=== PATIENT | female | born 1990 | race Caucasian/White ===

== ENCOUNTER 2017-03-24 20:34 | Emergency (ER) | payer BC ==
[~2017-03-24] VITALS: Ht 160 cm; Wt 79.4 kg
[~2017-03-24 20:34] MED LIST: DCS100C PO; EPIN0.3P2 IM; FAMO20TA5 PO; FRS325T PO; HYDR-707 PO; IBP600T1 PO; NITR-65 PO; OXYC-12 PO; PREN1TAB71 PO; PREN1TAB79 PO
[2017-03-24 20:51] LABS: BASOPHILS # (AUTO) 0.1 10^3/uL (0.0-0.1); BASOPHILS % (AUTO) 1 % (0-10); EOSINOPHILS # (AUTO) 0.1 10^3/uL (0.0-0.3); EOSINOPHILS % (AUTO) 1 % (0-10); LYMPHOCYTES # (AUTO) 3.8 X 10^3 (1.0-4.0); LYMPHOCYTES % (AUTO) 41 % (12-44); MEAN CORPUSCULAR HEMOGLOBIN 29 PG (25-34); MEAN CORPUSCULAR HGB CONC 33 G/DL (32-36); MEAN CORPUSCULAR VOLUME 87 FL (80-99); MEAN PLATELET VOLUME 10.3 FL (7.4-10.4); MONOCYTES # (AUTO) 0.6 X 10^3 (0.0-1.0); MONOCYTES % (AUTO) 7 % (0-12); NEUTROPHILS # (AUTO) 4.8 X 10^3 (1.8-7.8); NEUTROPHILS % (AUTO) 51 % (42-75); PLATELET COUNT 260 10^3/uL (130-400); RED BLOOD COUNT 4.84 10^6/uL (4.35-5.85); WHITE BLOOD COUNT 9.4 10^3/uL (4.3-11.0)
--- NOTE | 2017-03-24 20:59 | ED Abdominal Pain ---
General Stated Complaint: SHARP PAINS IN SIDES Source of Information: Patient Exam Limitations: No Limitations History of Present Illness Time Seen By Provider: 20:58 Initial Comments Sharp band around the epigastric region bilaterally that began suddenly 1 hour ago after eating chicken and noodles. She had a similar pain a few days ago but it was mild and resolved on its own. She denies fevers chills nausea or vomiting. Denies bowel changes. Timing/Duration: 1-2 Days Severity/Quality: Moderate Location: Epigastric Radiation: No Radiation Activities at Onset: None Associated Symptoms: Denies Symptoms Allergies and Home Medications Allergies Coded Allergies: No Known Drug Allergies (Unverified , 03/16/13) Home Medications Hydrocodone/Acetaminophen 1 Each Tablet, 1 EACH PO Q4H PRN for PAIN-SEVERE, #10 Prescribed by: [facility] on 03/24/172214 Ondansetron 8 Mg Tab.rapdis, 8 MG PO Q6H PRN for NAUSEA/VOMITING-1ST LINE, #10 Prescribed by: [facility] on 03/24/175 Vit W-Ca,Fe,FA(<1 mg) 1 Each Tablet, 1 EACH PO DAILY, (Reported) Review of Systems Constitutional: see HPI EENTM: No Symptoms Reported Respiratory: No Symptoms Reported Cardiovascular: No Symptoms Reported Gastrointestinal: See HPI, Abdominal Pain, Denies Constipated, Denies Diarrhea , Denies Nausea Genitourinary: No Symptoms Reported Musculoskeletal: no symptoms reported Skin: no symptoms reported Psychiatric/Neurological: No Symptoms Reported Endocrine: No Symptoms Reported Past Oqisyps-Zwofhb-Edzdfl Hx Patient Social History Recent Foreign Travel: No Contact w/Someone Who Travel: No Immunizations Up To Date Tetanus Booster (TDap): Less than 5yrs PED Vaccines UTD: Yes Seasonal Allergies Seasonal Allergies: No Surgeries HX Surgeries: No Respiratory Hx Respiratory Disorders: No Cardiovascular Hx Cardiac Disorders: No Neurological Hx Neurological Disorders: No Reproductive System Hx Reproductive Disorders: No Genitourinary Hx Genitourinary Disorders: No Gastrointestinal Hx Gastrointestinal Disorders: No Musculoskeletal Hx Musculoskeletal Disorders: No Endocrine Hx Endocrine Disorders: No HEENT HX ENT Disorders: No Cancer Hx Cancer: No Psychosocial Hx Psychiatric Problems: No Integumentary HX Skin/Integumentary Disorder: No Blood Transfusions Hx Blood Disorders: No Adverse Reaction to a Blood Tr: No Family Medical History Family Medial History: Diabetes mellitus 19 MOTHER Hypercholesterolemia 19 FATHER 19 MOTHER Hypertension 19 FATHER Physical Exam Vital Signs VS - Last 72 Hours, by Label 03/24/17 20:45 Temp 98.2 Pulse 82 Resp 18 B/P (MAP) 148/121 Pulse Ox 100 O2 Delivery Room Air Capillary Refill : General Appearance: WD/WN, no apparent distress HEENT: PERRL/EOMI, normal ENT inspection Neck: non-tender, full range of motion, supple Respiratory: normal breath sounds, no respiratory distress, no accessory muscle use Cardiovascular: regular rate, rhythm, no murmur Gastrointestinal: normal bowel sounds, soft Extremities: normal range of motion, non-tender Neurologic/Psychiatric: alert, normal mood/affect, oriented x 3 Skin: normal color, warm/dry Progress/Results/Core Measures Results/Orders Lab Results Laboratory Tests Test 03/24/17 20:45 03/24/17 20:48 Range/Units White Blood Count 9.4 4.3-11.0 10^3/uL Red Blood Count 4.84 4.35-5.85 10^6/uL Hemoglobin 14.0 11.5-16.0 G/DL Hematocrit 42 35-52 % Mean Corpuscular Volume 87 80-99 FL Mean Corpuscular Hemoglobin 29 25-34 PG Mean Corpuscular Hemoglobin Concent 33 32-36 G/DL Red Cell Distribution Width 13.0 10.0-14.5 % Platelet Count 260 130-400 10^3/uL Mean Platelet Volume 10.3 7.4-10.4 FL Neutrophils (%) (Auto) 51 42-75 % Lymphocytes (%) (Auto) 41 12-44 % Monocytes (%) (Auto) 7 0-12 % Eosinophils (%) (Auto) 1 0-10 % Basophils (%) (Auto) 1 0-10 % Neutrophils # (Auto) 4.8 1.8-7.8 X 10^3 Lymphocytes # (Auto) 3.8 1.0-4.0 X 10^3 Monocytes # (Auto) 0.6 0.0-1.0 X 10^3 Eosinophils # (Auto) 0.1 0.0-0.3 10^3/uL Basophils # (Auto) 0.1 0.0-0.1 10^3/uL Sodium Level 140 135-145 MMOL/L Potassium Level 3.7 3.6-5.0 MMOL/L Chloride Level 106 98-107 MMOL/L Carbon Dioxide Level 23 21-32 MMOL/L Anion Gap 11 5-14 MMOL/L Blood Urea Nitrogen 12 7-18 MG/DL Creatinine 0.75 0.60-1.30 MG/DL Estimat Glomerular Filtration Rate > 60 BUN/Creatinine Ratio 16 Glucose Level 82 70-105 MG/DL Calcium Level 9.8 8.5-10.1 MG/DL Total Bilirubin 0.5 0.1-1.0 MG/DL Aspartate Amino Transf (AST/SGOT) 19 5-34 U/L Alanine Aminotransferase (ALT/SGPT) 37 0-55 U/L Alkaline Phosphatase 75 40-136 U/L Total Protein 7.6 6.4-8.2 G/DL Albumin 4.9 H 3.2-4.5 G/DL Lipase 20 8-78 U/L Urine Color YELLOW Urine Clarity SLIGHTLY CLOUDY Urine pH 6 5-9 Urine Specific Gilbert 1.020 1.016-1.022 Urine Protein NEGATIVE NEGATIVE Urine Glucose (UA) NEGATIVE NEGATIVE Urine Ketones NEGATIVE NEGATIVE Urine Nitrite NEGATIVE NEGATIVE Urine Bilirubin NEGATIVE NEGATIVE Urine Urobilinogen NORMAL NORMAL MG/DL Urine Leukocyte Esterase 1+ H NEGATIVE Urine RBC (Auto) 2+ H NEGATIVE Urine RBC 2-5 H /HPF Urine WBC 2-5 /HPF Urine Squamous Epithelial Cells 2-5 /HPF Urine Crystals NONE /LPF Urine Bacteria MODERATE H /HPF Urine Casts NONE /LPF Urine Mucus NEGATIVE /LPF Urine Culture Indicated YES My Orders Orders - [facility] APRN Cbc With Automated Diff (03/24/17 20:37) Ua Culture If Indicated (03/24/17 20:37) Urine Bedside (03/24/17 20:37) Saline Lock/Iv-Start (03/24/17 20:37) Comprehensive Metabolic Panel (03/24/17 20:37) Lipase (03/24/17 20:48) Chest 1 View, Ap/Pa Only (03/24/17 20:48) Ct Abdomen/Pelvis W (03/24/17 20:48) Fentanyl Injection (Sublimaze Injection (03/24/17 21:00) Ketorolac Injection (Toradol Injection) (03/24/17 21:00) Iohexol Injection (Omnipaque 350 Mg/Ml 1 (03/24/17 21:30) Ns (Ivpb) (Sodium Chloride 0.9% Ivpb Bag (03/24/17 21:30) Urine Culture (03/24/17 20:48) Fentanyl Injection (Sublimaze Injection (03/24/17 22:15) Ondansetron Injection (Zofran Injectio (03/24/17 22:15) Ondansetron Injection (Zofran Injectio (03/24/17 22:09) Hyoscyamine Sl Tablet (Levsin Sl Tablet) (03/24/17 22:30) Hydromorphone Injection (Dilaudid Inject (03/24/17 22:30) Medications Given in ED Current Medications Medications Dose Ordered Sig/Sajan Route Start Time Stop Time Status Last Admin Dose Admin Fentanyl Citrate 50 mcg ONCE ONCE IVP 03/24/17 21:00 03/24/17 21:01 DC 03/24/17 20:57 50 MCG Fentanyl Citrate 50 mcg ONCE ONCE IVP 03/24/17 22:15 03/24/17 22:16 DC 03/24/17 22:10 50 MCG Iohexol 100 ml ONCE ONCE IV 03/24/17 21:30 03/24/17 21:31 DC 03/24/17 21:24 100 ML Ketorolac Tromethamine 30 mg ONCE ONCE IVP 03/24/17 21:00 03/24/17 21:01 DC 03/24/17 20:55 30 MG Ondansetron HCl 8 mg ONCE ONCE IVP 03/24/17 22:15 03/24/17 22:16 DC 03/24/17 22:14 8 MG Sodium Chloride 100 ml ONCE ONCE IV 03/24/17 21:30 03/24/17 21:31 DC 03/24/17 21:24 80 ML Vital Signs/I&O Vital Sign - Last 12Hours 03/24/17 20:45 Temp 98.2 Pulse 82 Resp 18 B/P (MAP) 148/121 Pulse Ox 100 O2 Delivery Room Air Diagnostic Imaging Diagonstic Imaging: CT Comments NAME: JUANJOSE MURRAY [facility] REC#: [id number] PT STATUS: REG ER : 1990 PHYSICIAN: [facility] APRN ADMIT DATE: 03/24/17/ER Draft Date of Exam:03/24/17 CT ABDOMEN/PELVIS W PROCEDURE: CT abdomen and pelvis with contrast. TECHNIQUE: Multiple contiguous axial images were obtained through the abdomen and pelvis after administration of intravenous contrast. DATE: March 24, 2017. COMPARISON: None. INDICATION: 26-year-old female, upper abdominal pain. FINDINGS: The visualized portions of the lung bases are clear. The heart is not enlarged. There is no pericardial effusion. The liver is normal in size and contour. There is no identified liver lesion. The main, right, and left portal vein are patent. The gallbladder is unremarkable. There is no intrahepatic or extrahepatic bile duct dilation. The main pancreatic duct is not abnormally dilated. The pancreatic parenchyma is unremarkable. The spleen is not enlarged. The adrenal glands are unremarkable. Unremarkable appearance of the renal parenchyma. The urinary collecting systems are not distended. There is no identified renal or ureteral stone. The urinary bladder is collapsed and not well evaluated. There is a fat-containing umbilical hernia. The appendix is well identified on axial image 67 and adjacent sequential images. There is no evidence of acute appendicitis. There is no free intraperitoneal air. There is no drainable fluid collection. There is no free pelvic fluid. There is no abnormally enlarged lymph node within the abdomen or pelvis which meets CT size criteria for adenopathy. There is a sclerotic lesion in the left proximal femur measuring 7 mm in size at the level of the left intertrochanteric femur with narrow zone of transition. This is not specific although most likely is benign in etiology. No additional sclerotic bone lesion is identified. There is no identified acute bony abnormality. IMPRESSION: CT ABDOMEN AND PELVIS. 1. No identified acute abnormality within the abdomen or pelvis. 2. Fat-containing umbilical hernia. Dictated on workstation # [id number] Dict: 03/24/172199 Trans: 03/24/172209 MIGUEL [id number] Interpreted by: CHARISSE LENNON MD Electronically signed by: Departure Communication Progress Notes 2229-patient rates her pain currently at 4-5 out of 10. On arrival she states it was "through the roof over a 10". She does have some nausea now. Zofran has been given. We will give additional dose of 12.5 mg Benadryl and Levsin discharged home with outpatient follow-up. I discussed with her the need to follow-up and schedule an outpatient ultrasound of her gallbladder. Impression Impression: Primary Impression: Epigastric abdominal pain of unknown etiology Disposition: 01 HOME, SELF-CARE Condition: Stable Departure-Patient Inst. Decision time for Depature: 22:14 Referrals: ANNEL OTTO MD (PCP/Family) Primary Care Physician Patient Instructions: NO INSTRUCTIONS GIVEN Add. Discharge Instructions: 1. I think we should assume this is your gallbladder until proven otherwise given that you had this pain a few weeks ago and then it recurred tonight. You should follow a low-fat low dairy product diet for the next few days. You should follow-up with Dr. Otto to discuss an ultrasound of your gallbladder. That cannot be done tonight because you've recently had food. They would watch her to schedule this as an outpatient having nothing to eat or drink for the preceding 4-6 hours. 3. Return to ER for any concerns Such as worsening pain, fevers or uncontrollable vomiting Scripts Ondansetron (Zofran Odt) 8 Mg Tab.rapdis 8 MG PO Q6H Y for NAUSEA/VOMITING-1ST LINE, #10 TAB Prov: [facility] APRN 03/24/17 Hydrocodone/Acetaminophen (Gamaliel 5-325 Tablet) 1 Each Tablet 1 EACH PO Q4H Y for PAIN-SEVERE, #10 TAB Prov: [facility] APRN 03/24/17 Work/School Note: Work Release Form Date Seen in the Emergency Department: Mar 24, 2017 Return to Work: Mar 26, 2017 Copy Copies To 1: ANNEL OTTO MD, PETER J APRN Mar 24, 2017 20:59
[2017-03-24] MEDS ORDERED: KETOROLAC 30 MG/ML VIAL IVP ONE (21:00)
[2017-03-24] MEDS ORDERED: fentaNYL INJECTION 100 MCG/2 ML AMP IVP ONE ×2 (21:00→22:15)
[2017-03-24 21:10] LABS: ALANINE AMINOTRANSFERASE 37 U/L (0-55); ALBUMIN 4.9 G/DL (3.2-4.5); ANION GAP 11 MMOL/L (5-14); ASPARTATE AMINO TRANSFERASE 19 U/L (5-34); BILIRUBIN,TOTAL 0.5 MG/DL (0.1-1.0); BLOOD UREA NITROGEN 12 MG/DL (7-18); BUN/CREATININE RATIO 16; CALCIUM 9.8 MG/DL (8.5-10.1); CARBON DIOXIDE 23 MMOL/L (21-32); CHLORIDE 106 MMOL/L (98-107); CREATININE SERUM 0.75 MG/DL (0.60-1.30); GFR ESTIMATED > 60; GLUCOSE 82 MG/DL (70-105); POTASSIUM 3.7 MMOL/L (3.6-5.0); SODIUM 140 MMOL/L (135-145); TOTAL PROTEIN 7.6 G/DL (6.4-8.2)
[2017-03-24 21:27] LABS: BILIRUBIN,URINE NEGATIVE (NEGATIVE); KETONES,URINE NEGATIVE (NEGATIVE); LEUKOCYTE ESTERASE ,URINE 1+ (NEGATIVE); NITRITE,URINE NEGATIVE (NEGATIVE); PH,URINE 6 (5-9); PROTEIN,URINE NEGATIVE (NEGATIVE); UROBILINOGEN,URINE NORMAL (NORMAL)
[2017-03-24] MEDS ORDERED: NS 100 ML (IVPB) BAG IV ONE (21:30)
[2017-03-24] MEDS ORDERED: IOHEXOL 350 MG/ML 100 ML (OMNIPAQUE 350) VIAL IV ONE (21:30)
[2017-03-24] MEDS ORDERED: ONDANSETRON 4 MG/2 ML (SDV) Z0FRAN ONE (22:09)
--- NOTE | 2017-03-24 22:10 | Diagnostic Imaging Report ---
PROCEDURE: CT abdomen and pelvis with contrast. TECHNIQUE: Multiple contiguous axial images were obtained through the abdomen and pelvis after administration of intravenous contrast. DATE: March 24, 2017. COMPARISON: None. INDICATION: 26-year-old female, upper abdominal pain. FINDINGS: The visualized portions of the lung bases are clear. The heart is not enlarged. There is no pericardial effusion. The liver is normal in size and contour. There is no identified liver lesion. The main, right, and left portal vein are patent. The gallbladder is unremarkable. There is no intrahepatic or extrahepatic bile duct dilation. The main pancreatic duct is not abnormally dilated. The pancreatic parenchyma is unremarkable. The spleen is not enlarged. The adrenal glands are unremarkable. Unremarkable appearance of the renal parenchyma. The urinary collecting systems are not distended. There is no identified renal or ureteral stone. The urinary bladder is collapsed and not well evaluated. There is a fat-containing umbilical hernia. The appendix is well identified on axial image 67 and adjacent sequential images. There is no evidence of acute appendicitis. There is no free intraperitoneal air. There is no drainable fluid collection. There is no free pelvic fluid. There is no abnormally enlarged lymph node within the abdomen or pelvis which meets CT size criteria for adenopathy. There is a sclerotic lesion in the left proximal femur measuring 7 mm in size at the level of the left intertrochanteric femur with narrow zone of transition. This is not specific although most likely is benign in etiology. No additional sclerotic bone lesion is identified. There is no identified acute bony abnormality. IMPRESSION: CT ABDOMEN AND PELVIS. 1. No identified acute abnormality within the abdomen or pelvis. 2. Fat-containing umbilical hernia. Dictated by: Dictated on workstation # [id number]
[2017-03-24] MEDS ORDERED: HYDR-757 PO (22:15)
[2017-03-24] MEDS ORDERED: ONDA8TAB9 PO (22:15)
[2017-03-24] MEDS ORDERED: ONDANSETRON 4 MG/2 ML (SDV) Z0FRAN IVP ONE (22:15)
--- NOTE | 2017-03-24 22:18 | Diagnostic Imaging Report ---
EXAMINATION: Chest radiograph, portable AP view. DATE: March 24, 2017 at 2145 hours. INDICATION: 26-year-old female, lower chest and upper abdominal pain. Pain with inspiration. COMPARISON: November 05, 2014. FINDINGS: Heart size and mediastinal contours are unremarkable. There is no identified pneumothorax. There is no large pleural effusion. There is no identified focal airspace consolidation. IMPRESSION: No identified acute cardiopulmonary abnormality. Dictated by: Dictated on workstation # [id number]
[2017-03-24] MEDS ORDERED: diphenhydrAMINE 50 MG/ML INJ (BENADRYL) ONE (22:27)
[2017-03-24] MEDS ORDERED: HYDROmorphone (DILAUDID) 2 MG/ML VIAL IVP ONE (22:30)
[2017-03-24] MEDS ORDERED: diphenhydrAMINE 50 MG/ML INJ (BENADRYL) IVP ONE ×2 (22:30→22:45)
[2017-03-24] MEDS ORDERED: HYOSCYAMINE 0.125 MG (LEVSIN) TAB PO ONE (22:30)
[2017-03-24 23:48] VITALS: BP 130/93
== END 2017-03-24 22:37 | disposition home or self-care (01) ==
LOC: EDUNIT# 20:34 → ER 20:35
DX: R10.13 Epigastric pain (principal); K42.9 Umbilical hernia without obstruction or gangrene
CPT/HCPCS: 36415; 71010; 74177; 80053; 81000; 83690; 84703; 85025; 87088; 96374; 96375; 96376

== ENCOUNTER → 2017-03-29 | Outpatient (CLI) | payer BC ==
[~2017-03-29] MED LIST changes: +HYDR-3812 PO; +HYDR-757 PO; +ONDA8TAB9 PO
--- NOTE | 2017-03-29 09:10 | Diagnostic Imaging Report ---
PROCEDURE: US Gallbladder. TECHNIQUE: Multiple real-time grayscale images were obtained over the right upper quadrant in various projections. INDICATION: Abdominal pain. FINDINGS: The visualized portions of the pancreas appear unremarkable. There is no focal hepatic lesion seen. Hepatopetal flow in the portal vein is seen. The gallbladder demonstrates multiple stones and sludge with no gallbladder wall thickening or pericholecystic fluid. The CBD is 4 mm in caliber. The right kidney is 9.1 cm in length with no hydronephrosis or focal lesion. No right upper quadrant fluid collection is seen. The sonographic Narvaez sign is reportedly positive. IMPRESSION: Gallstones. No wall thickening or pericholecystic fluid is noted. The patient, however, is tender over the gallbladder and the sonographic Narvaez sign is positive. Correlate clinically. The report was faxed to the office of Dr. Dunn by JOSESITO at 9:15 AM. Dictated by: Dictated on workstation # [id number]
== END ==
LOC: RAD 07:59
PROVIDERS: ATTEND Family Medicine
DX: K80.20 Calculus of gallbladder without cholecystitis without obstruction (principal)
CPT/HCPCS: 76705

== ENCOUNTER 2017-03-30 13:21 | Outpatient (CLI) | payer BC ==
[~2017-03-30] VITALS: Ht 160 cm; Wt 81.6 kg
[~2017-03-30 13:21] MED LIST changes: -HYDR-3812 PO
[2017-03-31] MEDS ORDERED: HYDR-3812 PO (10:30)
== END 2017-03-30 13:33 ==
LOC: PREOP 13:21
PROVIDERS: ATTEND Surgery
DX: Z01.818 Encounter for other preprocedural examination (principal); K80.20 Calculus of gallbladder without cholecystitis without obstruction

== ENCOUNTER 2017-03-31 07:20 | Day surgery (SDC) | payer BC ==
[~2017-03-31] VITALS: Ht 160 cm; Wt 81.6 kg
[~2017-03-31 07:20] MED LIST changes: +BUP/EPI 0.25% 1:200,000 (MARCAINE) 30 ML VIAL ONE
[2017-03-31] MEDS ORDERED: metroNIDAZOLE 500MG/100ML IVPB 100 ML ONE (07:25)
[2017-03-31] MEDS ORDERED: ceFAZolin 2 GM/50 ML NS 50 ML ONE (07:25)
[2017-03-31 07:35] VITALS: BP 125/87
[2017-03-31] MEDS ORDERED: metroNIDAZOLE 500 MG/100 ML IVPB (PRE-MIX) IV ONE (07:45)
[2017-03-31] MEDS ORDERED: ceFAZolin 2 GM/NS 50 ML IV ONE (07:45)
[2017-03-31] MEDS ORDERED: fentaNYL INJECTION 100 MCG/2 ML AMP IV ONE (08:00)
[2017-03-31] MEDS ORDERED: fentaNYL INJECTION 250 MCG/5 ML AMP ONE (08:05)
[2017-03-31] MEDS ORDERED: MIDAZOLAM 2 MG/2 ML (VERSED) VIAL ONE (08:05)
[2017-03-31] MEDS ORDERED: ONDANSETRON 4 MG/2 ML (SDV) Z0FRAN ONE (08:05)
[2017-03-31] MEDS ORDERED: ROCURONIUM 50 MG/5 ML (ZEMURON) VIAL IV ONE (08:05)
[2017-03-31] MEDS ORDERED: DEXAMETHASONE PF 10 MG/ML (DECADRON) VIAL ONE (08:05)
[2017-03-31] MEDS ORDERED: proPOfol 200 MG/20 ML (DIPRIVAN) VIAL IV ONE (08:05)
[2017-03-31] MEDS ORDERED: SEVOFLURANE (ULTANE) 15 ML INHAL SOLN ONE (08:05)
[2017-03-31] MEDS ORDERED: LACTATED RINGERS 1,000 ML IV ONE ×2 (08:05→10:20)
[2017-03-31] MEDS ORDERED: LIDOCAINE PF 2% 10 ML (XYLOCAINE) AMP ONE (08:05)
[2017-03-31] MEDS: LACTATED RINGERS 1,000 ML IV PRN ×3 (08:06→11:45)
--- NOTE | 2017-03-31 08:13 | Progress Note-Pre Operative ---
Pre-Operative Progress Note H&P Reviewed The H&P was reviewed, patient examined and no changes noted. Date H&P Reviewed: March 31, 2017 Time H&P Reviewed: 08:13 Pre-Operative Diagnosis: Gallstones THEODORA JACOBO MD March 31, 2017 8:13 am
[2017-03-31] MEDS ORDERED: NEOSTIGMINE (BLOXIVERZ ) 1 MG/1ML 10 ML VIAL ONE (10:10)
[2017-03-31] MEDS ORDERED: GLYCOPYRROLATE 0.2 MG/ML (ROBINUL) 2 ML VIAL ONE (10:10)
[2017-03-31] MEDS ORDERED: fentaNYL INJECTION 100 MCG/2 ML AMP ONE (10:14)
--- NOTE | 2017-03-31 10:29 | Progress Note-Post Operative ---
Post-Operative Progess Note Surgeon (s)/Rock Crusher Operator (s) Surgeon THEODORA JACOBO MD Rock Crusher Operator: not applicable Pre-Operative Diagnosis Gallstones Post-Operative Diagnosis ssame Post-Op Procedure Note Date of Procedure: March 31, 2017 Name of Procedure Performed: robotic-assisted cholecystectomy Description of the Procedure: see operative report Findings of the Procedure see operative report Anesthesia Type Gen. Estimated blood loss (mL): minimal Specimen(s) collected/removed gallbladder THEODORA JACOBO MD March 31, 2017 10:29 am
[2017-03-31] MEDS ORDERED: HYDR-3812 PO (10:30)
--- NOTE | 2017-03-31 10:31 | Discharge Inst-Simple/Standard ---
Discharge Inst-Standard Discharge Medications New, Converted or Re-Newed RX: RX on Chart Patient Instructions/Follow Up Plan of Care/Instructions/FU: dressings off in 48 hours. Incentive spirometry. Follow-up in 3 weeks. Activity as Tolerated: Yes Discharge Diet: No Restrictions THEODORA JACOBO MD March 31, 2017 10:31 am
[2017-03-31] MEDS: HYDROmorphone (DILAUDID) 2 MG/ML VIAL IVP PRN ×3 (10:41→11:01)
[2017-03-31] MEDS ORDERED: MEPERIDINE (DEMEROL) INJ 50 MG/ML IVP PRN (10:45)
[2017-03-31] MEDS ORDERED: ONDANSETRON 4 MG/2 ML (SDV) Z0FRAN IVP PRN (10:45)
[2017-03-31] MEDS ORDERED: HYDROcodone/APAP 5 MG/325 MG (LORTAB) TAB ONE (11:26)
[2017-03-31 11:30] VITALS: BP 132/92
[2017-03-31 12:00] VITALS: BP 112/71
[2017-03-31 12:30] VITALS: BP 115/80
--- NOTE | 2017-04-01 07:24 | OPERATIVE REPORT ---
DATE OF SERVICE: 03/31/2017 PREOPERATIVE DIAGNOSIS: Cholelithiasis. POSTOPERATIVE DIAGNOSIS: Cholelithiasis. OPERATION: Robotic-assisted cholecystectomy. SURGEON: Theodora Jacobo MD ANESTHESIA: General anesthesia. BLOOD LOSS: Minimal. FLUIDS: 1600 mL of crystalloid, type 2 (clean-contaminated wound). INDICATION OF PROCEDURE: This lady presented with symptomatic gallstones. She was offered minimally invasive cholecystectomy using robotic assistance. Informed consent was obtained after reviewing the operative details and complications of wound infection. DESCRIPTION OF PROCEDURE: She was placed supine on the operating room table and general anesthesia induced using an endotracheal tube. A gram of Ancef and 500 mg of Flagyl were administered intravenously as prophylaxis against a wound infection. Sequential compression devices were placed around her legs to minimize the risk of venous thrombus. Abdomen was prepared and draped in the usual sterile manner. A supraumbilical incision was made and the linea alba incised from the . A supraumbilical incision was made and pneumoperitoneum was established using a Veress needle. Intraabdominal pressure was maintained at 15 mmHg, using carbon dioxide insufflation. A 12 mm trocar was placed and anatomy was visualized using the high definition, 3-dimensional laparoscope associated with Da Nallely system. Under direct view, I placed an 8 mm cannula over each side of the abdomen, followed by a 5 mm trocar over the left upper quadrant. The patient was turned on the reverse Trendelenburg position with the right side titled up. The robotic system was then docked in place. The fundus of the gallbladder was retracted using a grasper introduced via the left upper quadrant and the infundibulum of the gallbladder grasped with Cadiere's forceps. The peritoneum overlying Calot's triangle was incised using Hook cautery, delineating the cystic duct and artery. Due to LFTs being normal and the cystic duct being of small caliber, I elected to proceed without performing . Cystic duct is divided between locking clips. The cystic artery was managed in a similar fashion. Cholecystectomy was then completed using the Hook cautery. Gallbladder was then held up using a grasper, to be clear to use using an Endocatch bag, introduced via this supraumbilical trocar site. Subsequently, the fascia over this incision was closed using #1 Vicryl, using the EndoClose device under direct laparoscopic view. Skin incisions were closed using 4-0 Vicryl in a subcuticular fashion. A 0.25% Marcaine with epinephrine was infiltrate along the incisions, both preemptively and at the conclusion of the operation. She tolerated the procedure well, was extubated in the operating room and taken to the recovery room in stable condition. Needs, sponges and instruments were correct at the end of the operation. Job ID: [id number] DocumentID: [id number] Dictated Date: 03/31/2017 10:26:37 Hand Sizer Date: 04/01/2017 03:51:58 Dictated By: THEODORA JACOBO MD
== END 2017-03-31 13:50 | disposition home or self-care (01) ==
LOC: SDC 07:20
PROVIDERS: ATTEND Surgery
DX: K80.10 Calculus of gallbladder with chronic cholecystitis without obstruction (principal)
CPT/HCPCS: 84703; 87081; 88304; 94664

== ENCOUNTER → 2017-08-16 | Outpatient (CLI) | payer BC, OTHER ==
[~2017-08-16] MED LIST changes: -BUP/EPI 0.25% 1:200,000 (MARCAINE) 30 ML VIAL ONE; +HYDR-3812 PO
--- NOTE | 2017-08-16 09:31 | Diagnostic Imaging Report ---
PROCEDURE: CT urinary tract, rule out kidney stone. TECHNIQUE: Multiple contiguous axial images were obtained through the abdomen and pelvis without the use of intravenous contrast. INDICATION: Right flank pain. Study compared 03/24/2017 FINDINGS: There is no hydronephrosis and there are no opaque kidney or ureteral stones. The unopacified urinary bladder appeared normal. The appendix air-containing nondilated and nonacute. Liver, spleen, adrenals and pancreas negative. There is no biliary ductal dilatation. There is no bowel obstruction. No ascites, abscess, hematoma or fluid collection. No pneumatosis or free air. The uterus and adnexa unremarkable. Tiny fatty umbilical hernia chronic. IMPRESSION: No obstructive phenomena, inflammatory process, ascites or fluid collection. No acute appearing abnormality. Dictated by: Dictated on workstation # [id number]
== END ==
LOC: RAD 08:55
PROVIDERS: ATTEND Family Medicine
DX: R10.31 Right lower quadrant pain (principal)
CPT/HCPCS: 74176

== ENCOUNTER → 2017-11-16 | Outpatient (CLI) | payer BC, OTHER ==
--- NOTE | 2017-11-16 14:53 | Diagnostic Imaging Report ---
INDICATION: COUGH FOR 2 WEEKS. COMPARISON: 03/24/2017. FINDINGS: Frontal and lateral views of the chest demonstrate normal heart size and pulmonary vascularity. The lungs are clear. There are no signs of infiltrate, pleural effusions or pneumothoraces. The visualized osseous structures show no acute abnormalities. IMPRESSION: 1. No acute process. No signs of infiltrates, effusions or pneumothoraces. Dictated by: Dictated on workstation # [id number]
== END ==
LOC: RAD 14:32
PROVIDERS: ATTEND Family Medicine
DX: R05 Cough (principal)
CPT/HCPCS: 71020

== ENCOUNTER 2019-12-10 17:14 | Emergency (ER) | payer BC, OTHER ==
[~2019-12-10] VITALS: Ht 160 cm; Wt 86.6 kg
[~2019-12-10 17:14] MED LIST changes: +ACHD5005 PO; -HYDR-3812 PO; +HYDR-4226 PO; -HYDR-757 PO
--- NOTE | 2019-12-10 17:41 | ED Lower Extremity ---
General Chief Complaint: Lower Extremity Stated Complaint: BILAT ANKLE PAIN Nursing Triage Note: STATES SHE FELL DOWN X2 STARIS AND TWISTED BOTH ANKLES. DENIES HITTING HER HEAD OR ANY OTHER PROBLEMS. Nursing Sepsis Screen: No Definite Risk Source: patient Exam Limitations: no limitations History of Present Illness Date Seen by Provider: Dec 10, 2019 Time Seen by Provider: 17:39 Initial Comments To ER with bilateral ankle pain after falling down the stairs denies any head or any other injury. Onset: just prior to arrival Severity: moderate Pain/Injury Location: bilateral ankle Method of Injury: fell Modifying Factors: Worse With Movement Allergies and Home Medications Allergies Coded Allergies: No Known Drug Allergies (Unverified , 03/16/13) Home Medications Hydrocodone Bit/Acetaminophen 1 Each Tablet, 1-2 TAB PO 4-6HR PRN for PAIN Prescribed by: THEODORA JACOBO on 03/31/17 1030 Hydrocodone/Acetaminophen 1 Each Tablet, 1 EACH PO Q4H PRN for PAIN-SEVERE Prescribed by: [facility] DON on 03/24/17 2215 Patient Home Medication List Home Medication List Reviewed: Yes Review of Systems Constitutional: see HPI EENTM: see HPI Respiratory: no symptoms reported Cardiovascular: no symptoms reported Genitourinary: no symptoms reported Musculoskeletal: see HPI Skin: no symptoms reported Psychiatric/Neurological: No Symptoms Reported Past Fhqfosu-Jqbnnd-Ehozgs Hx Patient Social History Alcohol Use: Occasionally Uses Alcohol Beverage of Choice: Beer Recreational Drug Use: No Smoking Status: Never a Smoker 2nd Hand Smoke Exposure: No Recent Foreign Travel: No Contact w/Someone Who Travel: No Recent Infectious Disease Expo: No Recent Hopitalizations: No Immunizations Up To Date Tetanus Booster (TDap): Less than 5yrs PED Vaccines UTD: Yes Seasonal Allergies Seasonal Allergies: No Past Medical History Surgeries: No Respiratory: No Cardiac: No Neurological: No : No Last Menstrual Period: Dec 05, 2019 Reproductive Disorders: No Gastrointestinal: Yes Gall Bladder Disease Musculoskeletal: No Endocrine: No Cancer: No Psychosocial: No Integumentary: No Blood Disorders: No Adverse Reaction/Blood Tranf: No Family Medical History Diabetes mellitus 19 MOTHER Hypercholesterolemia 19 FATHER 19 MOTHER Hypertension 19 FATHER Physical Exam Vital Signs Vital Signs - First Documented 12/10/19 17:25 Temp 36.9 Pulse 79 Resp 16 B/P (MAP) 133/88 (103) Pulse Ox 99 O2 Delivery Room Air Capillary Refill : Less Than 3 Seconds Height, Weight, BMI Height: 5'3.00" Weight: 180lbs. 0.0oz. 81.586127zr; 33.00 BMI Method:Stated General Appearance: WD/WN, no apparent distress Respiratory: no respiratory distress, no accessory muscle use Hips: bilateral hip non-tender, bilateral hip normal inspection, bilateral hip normal range of motion Legs: bilateral leg non-tender Knees: bilateral knee non-tender, bilateral knee normal inspection, bilateral knee normal range of motion Ankles: bilateral ankle other (swelling laterally over the lateral malleolus bilaterally. Dorsalis pedis pulse +2 bilaterally. Normal sensation of the toes, normal movement of the toes, no tenderness to palpation of her heel. No tenderness to the mid tibia or fibula or proximal tibia or fibula on either side. No foot pain this is only ankle pain) Feet: bilateral foot non-tender, bilateral foot normal inspection, bilateral foot normal range of motion Neurologic/Psychiatric: alert, normal mood/affect, oriented x 3 Skin: normal color, warm/dry Progress/Results/Core Measures Results/Orders My Orders Orders - [facility] DON APRN Ankle, Bilateral, 3 Views (12/10/19 17:33) Hydrocodone/Apap 5/325 Tablet (Lortab 5 (12/10/19 17:45) Medications Given in ED Current Medications Medications Dose Ordered Sig/Sajan Route Start Time Stop Time Status Last Admin Dose Admin Acetaminophen/ Hydrocodone Bitart 1 tab ONCE ONCE PO 12/10/19 17:45 12/10/19 17:46 DC 12/10/19 17:41 1 TAB Vital Signs/I&O 12/10/19 17:25 Temp 36.9 Pulse 79 Resp 16 B/P (MAP) 133/88 (103) Pulse Ox 99 O2 Delivery Room Air Blood Pressure Mean: 103 Departure Impression Primary Impression: Sprain and strain of ankle Disposition: 01 HOME, SELF-CARE Condition: Stable Departure-Patient Inst. Decision time for Depature: 17:56 Referrals: ANNEL OTTO MD (PCP/Family) Primary Care Physician Patient Instructions: Ankle Sprain (DC) Add. Discharge Instructions: 1. Shade wrap to both ankles 2. Keep the ankle elevated as much as possible for the next 1-2 days to help reduce swelling. Ice pack may also be comforting. Pain medication as directed. When this runs out use Tylenol and ibuprofen. Use the crutches as needed for pain with walking, since her left foot hurts worse it may be better to use the crutches and put weight on your right foot sparing the left. All discharge instructions reviewed with patient and/or family. Voiced unders tanding. Scripts Hydrocodone Bit/Acetaminophen (Hydrocodone/Acetaminophen 5/325mg Tablet) 1 Tab Tab 1 EACH PO Q4-6HR PRN for PAIN-MODERATE MDD 10 for 3 Days, #10 TAB Prov: [facility] APRN 12/10/19 Work/School Note: Work Release Form Date Seen in the Emergency Department: Dec 10, 2019 Return to Work: Dec 13, 2019 [facility] DON APRN Dec 10, 2019 17:41
--- NOTE | 2019-12-10 17:44 | NUR ---
ANKLES ELEVATED ON PILLOW ET ICE APPLIED.
[2019-12-10] MEDS ORDERED: HYDROcodone/APAP 5 MG/325 MG (LORTAB) TAB PO ONE (17:45)
[2019-12-10] MEDS ORDERED: ACHD5005 PO (17:57)
--- NOTE | 2019-12-10 18:02 | Diagnostic Imaging Report ---
INDICATION: Bilateral ankle pain and injury. TIME OF EXAM: 5:56 p.m. Multiple views of bilateral ankles were obtained. FINDINGS: Both ankles show normal alignment. Ankle mortises are maintained. Talar domes are smooth. There are tiny well-corticated osseous densities adjacent to the medial malleolus on the right, likely old avulsions. No acute fracture is identified. There are plantar calcaneal spurs bilaterally. IMPRESSION: No acute bony abnormality is detected. Dictated by: Dictated on workstation # [id number]
[2019-12-10 18:17] VITALS: BP 133/88
== END 2019-12-10 18:17 | disposition home or self-care (01) ==
LOC: EDUNIT# 17:14 → ER 17:15
DX: S93.401A Sprain of unspecified ligament of right ankle, initial encounter (principal); S93.402A Sprain of unspecified ligament of left ankle, initial encounter; Z82.49 Family history of ischemic heart disease and other diseases of the circulatory system; W10.9XXA Fall (on) (from) unspecified stairs and steps, initial encounter

== ENCOUNTER 2021-10-28 00:20 | Emergency (ER) | payer OTHER ==
[~2021-10-28] VITALS: Ht 160 cm; Wt 93.0 kg
[2021-10-28] MEDS ORDERED: KETOROLAC 30 MG/ML VIAL IVP ONE (01:30)
--- NOTE | 2021-10-28 01:33 | ED Chest Pain ---
General Chief Complaint: Psych/Social Disorder Stated Complaint: CP,HANDS & ARMS TINGLING,ANXIETY Source: patient Exam Limitations: no limitations History of Present Illness Date Seen by Provider: Oct 28, 2021 Time Seen by Provider: 00:45 Initial Comments Patient is had 3 days of anxiety attacks tingling in her fingers, consistent with her previous anxiety attacks. She went and saw her doctor, Dr. Otto and he thought it might be from her Depo-Provera. She is on her second dose about 2 weeks ago. Today however around noon she started having severe chest pain in her right upper chest radiating through to her back shoulder blade. It was 10 out of 10 and caused her to stop what she was doing and hunch over. After a few minutes it came down. She is also having some chest pain over her left subcostal margin worse on deep inspiration. Neither are made worse by palpation. She took 600 mg of ibuprofen 2 hours ago without relief. She is not having any nausea. She is having a headache. She says she has a history of anxiety attacks. She is not having any fevers but has some nasal congestion. No no sore throat, cough or shortness of air. No primary family or personal history of coronary artery disease. No hypertension, hyperlipidemia, diabetes, smoking or drug use. Patient rates her pain as a 4 out of 10 presently. She has had her gallbladder out surgically in the past. Allergies and Home Medications Allergies Coded Allergies: No Known Drug Allergies (Unverified , 03/16/13) Patient Home Medication List Home Medication List Reviewed: Yes Hydrocodone Bit/Acetaminophen (Lortab 5 Mg Tablet) 1 Each Tablet, 1-2 TAB PO 4- 6HR PRN for PAIN Prescribed by: THEODORA JACOBO on 03/31/17 1030 Hydrocodone Bit/Acetaminophen (Lortab 5 Mg Tablet) 1 Tab Tab, 1 EACH PO Q4-6HR PRN for PAIN-MODERATE Prescribed by: [facility] on 12/10/19 1757 Hydrocodone/Acetaminophen (Hydrocodone/Acetaminophen 5 MG/325 MG TAB) 1 Each Tablet, 1 EACH PO Q4H PRN for PAIN-SEVERE Prescribed by: [facility] DON on 03/24/17 2215 Naproxen (Naprosyn) 500 Mg Tablet, 500 MG PO BID Prescribed by: MELO LOPEZ on 10/28/21 0302 Review of Systems Review of Systems Constitutional: No chills, No diaphoresis EENTM: No Blurred Vision, No Double Vision Respiratory: Denies Cough, Denies Shortness of Air Cardiovascular: See HPI, Chest Pain; Denies Edema, Denies Lightheadedness Gastrointestinal: Denies Abdominal Pain, Denies Constipated, Denies Diarrhea, Denies Nausea Genitourinary: Denies Burning, Denies Discharge Musculoskeletal: No back pain, No joint pain Psychiatric/Neurological: Anxiety; Denies Depressed; Paresthesia All Other Systems Reviewed Negative Unless Noted: Yes Past Exkesqb-Ebnoft-Ebjssi Hx Patient Social History Tobacco Use?: No Use of E-Cig and/or Vaping dev: No Immunizations Up To Date Tetanus Booster (TDap): Less than 5yrs PED Vaccines UTD: Yes Seasonal Allergies Seasonal Allergies: No Past Medical History Surgeries: No Respiratory: No Cardiac: No Neurological: No Reproductive Disorders: No Gastrointestinal: Yes Gall Bladder Disease Musculoskeletal: No Endocrine: No Cancer: No Psychosocial: No Integumentary: No Blood Disorders: No Adverse Reaction/Blood Tranf: No Family Medical History Diabetes mellitus 19 MOTHER Hypercholesterolemia 19 FATHER 19 MOTHER Hypertension 19 FATHER Physical Exam Vital Signs Vital Signs - First Documented 10/28/21 00:47 Temp 36.7 Pulse 80 Resp 18 B/P (MAP) 145/89 (107) Pulse Ox 100 O2 Delivery Room Air Capillary Refill : Height, Weight, BMI Height: 5'3.00" Weight: 180lbs. 0.0oz. 81.945097wc; 33.00 BMI Method:Stated General Appearance: WD/WN, Anxious HEENT: PERRL/EOMI, Pharynx Normal, Moist Mucous Membranes Neck: Full Range of Motion, Normal Inspection Respiratory: Chest Non Tender, Lungs Clear, Normal Breath Sounds, No Accessory Muscle Use, No Respiratory Distress Cardiovascular: Regular Rate, Rhythm, No Edema, Normal Peripheral Pulses Gastrointestinal: Normal Bowel Sounds, Non Tender, Soft Extremity: Normal Capillary Refill, Normal Inspection, No Pedal Edema Neurologic/Psychiatric: Alert, Oriented x3, No Motor/Sensory Deficits, Other (Mildly anxious affect) Skin: Normal Color, Warm/Dry Progress/Results/Core Measures Results/Orders Lab Results Laboratory Tests Test 10/28/21 01:04 Range/Units White Blood Count 12.3 H 4.3-11.0 10^3/uL Red Blood Count 4.90 3.80-5.11 10^6/uL Hemoglobin 14.4 11.5-16.0 g/dL Hematocrit 44 35-52 % Mean Corpuscular Volume 90 80-99 fL Mean Corpuscular Hemoglobin 29 25-34 pg Mean Corpuscular Hemoglobin Concent 33 32-36 g/dL Red Cell Distribution Width 13.0 10.0-14.5 % Platelet Count 272 130-400 10^3/uL Mean Platelet Volume 10.2 9.0-12.2 fL Immature Granulocyte % (Auto) 0 % Neutrophils (%) (Auto) 56 42-75 % Lymphocytes (%) (Auto) 35 12-44 % Monocytes (%) (Auto) 7 0-12 % Eosinophils (%) (Auto) 1 0-10 % Basophils (%) (Auto) 1 0-10 % Neutrophils # (Auto) 6.8 1.8-7.8 10^3/uL Lymphocytes # (Auto) 4.3 H 1.0-4.0 10^3/uL Monocytes # (Auto) 0.9 0.0-1.0 10^3/uL Eosinophils # (Auto) 0.1 0.0-0.3 10^3/uL Basophils # (Auto) 0.1 0.0-0.1 10^3/uL Immature Granulocyte # (Auto) 0.0 0.0-0.1 10^3/uL D-Dimer 0.06 0.00-0.49 UG/ML Sodium Level 138 135-145 MMOL/L Potassium Level 3.6 3.6-5.0 MMOL/L Chloride Level 104 98-107 MMOL/L Carbon Dioxide Level 19 L 21-32 MMOL/L Anion Gap 15 H 5-14 MMOL/L Blood Urea Nitrogen 21 H 7-18 MG/DL Creatinine 0.78 0.60-1.30 MG/DL Estimat Glomerular Filtration Rate 85 BUN/Creatinine Ratio 27 Glucose Level 95 70-105 MG/DL Calcium Level 9.5 8.5-10.1 MG/DL Corrected Calcium 8.5-10.1 MG/DL Total Bilirubin 0.3 0.1-1.0 MG/DL Aspartate Amino Transf (AST/SGOT) 25 5-34 U/L Alanine Aminotransferase (ALT/SGPT) 73 H 0-55 U/L Alkaline Phosphatase 79 40-136 U/L Troponin I < 0.028 <0.028 NG/ML C-Reactive Protein High Sensitivity 0.27 0.00-0.50 MG/DL Total Protein 7.7 6.4-8.2 GM/DL Albumin 4.6 H 3.2-4.5 GM/DL Lipase 29 8-78 U/L Influenza Type A (RT-PCR) Not Detected Not Detecte Influenza Type B (RT-PCR) Not Detected Not Detecte SARS-CoV-2 RNA (RT-PCR) Not Detected Not Detecte My Orders Orders - MELO LOPEZ Cbc With Automated Diff (10/28/21 01:24) Comprehensive Metabolic Panel (10/28/21 01:24) Hs C Reactive Protein (10/28/21:24) Chest Pa/Lat (2 View) (10/28/21:24) Troponin I [place] (10/28/21:24) Ekg Tracing (10/28/21:24) Continuous Ekg Monitoring (10/28/21:24) Lipase (10/28/21:24) Influenza A And B By Pcr (10/28/21:24) Covid 19 Inhouse Test (10/28/21 01:24) Ketorolac Injection (Toradol Injection) (10/28/21 01:30) Fibrin Degradation Products (10/28/21:24) Medications Given in ED Vital Signs/I&O 10/28/21 10/28/21 00:47 03:36 Temp 36.7 Pulse 80 65 Resp 18 16 B/P (MAP) 145/89 (107) 111/67 Pulse Ox 100 100 O2 Delivery Room Air Room Air Progress Progress Note : Time: 01:30 Progress Note Low likelihood for coronary disease. We will give her Toradol, check 2 view chest x-ray and look for pneumonia as well as obtain labs. Wells score for pulmonary embolism: 0.0 points. Low risk group: 1.3% chance of PE in an ED population. PERC 0 criteria. No need for further workup, as <2% chance of PE. If no criteria are positive and clinicians pre-test probability is <15%, PERC Rule criteria are satisfied. Initial ECG Impression Date: Oct 28, 2021 Initial ECG Impression Time: 00:48 Initial ECG Rate: 76 Initial ECG Rhythm: Normal Sinus Initial ECG Intervals: Normal Initial ECG Impression: Normal Comment Normal sinus rhythm without clinically relevant ST elevation or depression. Diagnostic Imaging Diagonstic Imaging: Xray Plain Films/CT/US/NM/MRI: chest (2v) Comments Unremarkable chest x-ray. [facility]. [place], [place] NAME: JUANJOSE MURRAY [facility] REC#: [id number] PT STATUS: DEP ER : 1990 PHYSICIAN: MELO LOPEZ MD ADMIT DATE: 10/28/21/ER Signed Date of Exam:10/28/21 CHEST PA/LAT (2 VIEW) CHEST PA/LAT (2 VIEW) Indication: Chest pain Comparison: 11/16/2017 Findings: No pulmonary mass or consolidation. No pleural effusion or pneumothorax. Normal heart size and mediastinal contours. Impression: No acute cardiopulmonary process. Dictated by: Dictated on workstation # [id number] Dict: 10/28/21620 Trans: 10/28/21620 [facility] [id number] Interpreted by: OSWALDO MAI MD Electronically signed by: OSWALDO MAI MD 10/28/21620 Reviewed: Reviewed by Me Departure Impression Primary Impression: Costochondral chest pain Disposition: 01 HOME, SELF-CARE Condition: Stable Departure-Patient Inst. Decision time for Depature: 02:55 Referrals: ANNEL OTTO MD (PCP/Family) Primary Care Physician Patient Instructions: Chest Pain That Is Not Caused by the Heart (DC) Add. Discharge Instructions: Naproxen 500 mg twice a day as necessary until the pain in your chest goes away. Follow-up with your primary care provider for reexamination if not seeing improvement in symptoms. Discuss steroids at that point Return to the ER if you are having progressively worsening, severe chest pain, shortness of air or other worrisome symptoms All discharge instructions reviewed with patient and/or family. Voiced understanding. Scripts Naproxen (Naprosyn) 500 Mg Tablet 500 MG PO BID for 14 Days, #30 TAB 0 Refills Prov: MELO LOPEZ 10/28/21 Copy Copies To 1: ANNEL OTTO MD, TITUS J Oct 28, 2021 01:33
[2021-10-28 01:40] LABS: BASOPHILS # (AUTO) 0.1 10^3/uL (0.0-0.1); BASOPHILS % (AUTO) 1 % (0-10); EOSINOPHILS # (AUTO) 0.1 10^3/uL (0.0-0.3); EOSINOPHILS % (AUTO) 1 % (0-10); HEMATOCRIT 44 % (35-52); HEMOGLOBIN 14.4 g/dL (11.5-16.0); LYMPHOCYTES # (AUTO) 4.3 10^3/uL (1.0-4.0); LYMPHOCYTES % (AUTO) 35 % (12-44); MEAN CORPUSCULAR HEMOGLOBIN 29 pg (25-34); MEAN CORPUSCULAR HGB CONC 33 g/dL (32-36); MEAN CORPUSCULAR VOLUME 90 fL (80-99); MEAN PLATELET VOLUME 10.2 fL (9.0-12.2); MONOCYTES # (AUTO) 0.9 10^3/uL (0.0-1.0); MONOCYTES % (AUTO) 7 % (0-12); NEUTROPHILS # (AUTO) 6.8 10^3/uL (1.8-7.8); NEUTROPHILS % (AUTO) 56 % (42-75); PLATELET COUNT 272 10^3/uL (130-400); WHITE BLOOD COUNT 12.3 10^3/uL (4.3-11.0)
[2021-10-28 02:05] LABS: ALBUMIN 4.6 GM/DL (3.2-4.5); CHLORIDE 104 MMOL/L (98-107); POTASSIUM 3.6 MMOL/L (3.6-5.0); SODIUM 138 MMOL/L (135-145)
[2021-10-28 02:06] LABS: CALCIUM 9.5 MG/DL (8.5-10.1)
[2021-10-28 02:07] LABS: GLUCOSE 95 MG/DL (70-105); TOTAL PROTEIN 7.7 GM/DL (6.4-8.2)
[2021-10-28 02:08] LABS: CARBON DIOXIDE 19 MMOL/L (21-32)
[2021-10-28 02:09] LABS: BILIRUBIN,TOTAL 0.3 MG/DL (0.1-1.0)
[2021-10-28 02:11] LABS: ALKALINE PHOSPHATASE 79 U/L (40-136); CREATININE SERUM 0.78 MG/DL (0.60-1.30); GFR ESTIMATED 85
[2021-10-28 02:12] LABS: BUN/CREATININE RATIO 27
[2021-10-28 02:14] LABS: ALANINE AMINOTRANSFERASE 73 U/L (0-55); LIPASE 29 U/L (8-78)
[2021-10-28] MEDS ORDERED: NAPR-1071 PO (03:02)
[2021-10-28 03:36] VITALS: BP 111/67
--- NOTE | 2021-10-28 06:23 | Diagnostic Imaging Report ---
CHEST PA/LAT (2 VIEW) Indication: Chest pain Comparison: 11/16/2017 Findings: No pulmonary mass or consolidation. No pleural effusion or pneumothorax. Normal heart size and mediastinal contours. Impression: No acute cardiopulmonary process. Dictated by: Dictated on workstation # [id number]
== END 2021-10-28 03:10 | disposition home or self-care (01) ==
LOC: EDUNIT# 00:20 → ER 00:22
DX: M94.0 Chondrocostal junction syndrome [Tietze] (principal); Z20.822 Contact with and (suspected) exposure to COVID-19
CPT/HCPCS: 36415; 71046; 80053; 83690; 84484; 85025; 85379; 86141; 87636; 93005

== ENCOUNTER 2022-06-07 19:56 | Emergency (ER) | payer OTHER ==
[~2022-06-07 19:56] MED LIST changes: +NAPR-1071 PO
[2022-06-07] MEDS ORDERED: methylPREDNISolone 125 MG (Solu-MEDROL) VIAL IVP ONE (20:15)
[2022-06-07] MEDS ORDERED: diphenhydrAMINE 50 MG/ML INJ (BENADRYL) IVP ONE (20:15)
[2022-06-07] MEDS ORDERED: FAMOTIDINE 20MG/2ML IV (PEPCID) IVP ONE (20:15)
--- NOTE | 2022-06-07 20:46 | ED Integumentary General ---
General Chief Complaint: Bite-Animal/Human/Insect Stated Complaint: BEE STING Nursing Triage Note: TO ED VIA POV AND AMBULATORY TO ROOM 3 WITH C/O BEE STING TO LEFT FOOT. ALLERGY TO BEE STINGS. DOES NOT HAVE EPI PEN. NO BENADRYL PATIENT ACCOUNTING REPRESENTATIVE. STATES SOA AND CHEST TIGHTNESS. NO RESPIRATORY DISTRESS NOTED. FLAT AFFECT. Source: patient History of Present Illness Date Seen by Provider: Jun 07, 2022 Time Seen by Provider: 20:10 Initial Comments PT ARRIVES VIA POV FROM HOME PT STATES EXACTLY 36 MINUTES AGO, SHE WAS WALKING BAREFOOT OUTSIDE AND STEPPED ON A BEE AND WAS STUNG ON THE BOTTOM OF HER LEFT FOOT AND RUSHED STRAIGHT HERE HAS NOT TAKEN ANYTHING AT ALL FOR THIS STATES SHE IS "ALLERGIC TO BEE STINGS" STATES SHE FEELS "SHORT OF BREATH AND HER CHEST FEELS TIGHT AND SHE IS SWELLING UP" NO ITCHING PT STATES SHE HAS HAD A TETANUS VACCINE LESS THAN 5 YEARS AGO PCP; [facility]SO DR. OTTO Allergies and Home Medications Allergies Coded Allergies: No Known Drug Allergies (Unverified , 03/16/13) Patient Home Medication List Home Medication List Reviewed: Yes Hydrocodone Bit/Acetaminophen (Lortab 5 Mg Tablet) 1 Each Tablet, 1-2 TAB PO 4- 6HR PRN for PAIN Prescribed by: THEODORA JACOBO on 03/31/17 1030 Hydrocodone Bit/Acetaminophen (Lortab 5 Mg Tablet) 1 Tab Tab, 1 EACH PO Q4-6HR PRN for PAIN-MODERATE Prescribed by: [facility] on 12/10/19 1757 Hydrocodone/Acetaminophen (Hydrocodone/Acetaminophen 5 MG/325 MG TAB) 1 Each Tablet, 1 EACH PO Q4H PRN for PAIN-SEVERE Prescribed by: [facility] DON on 03/24/17 2215 Naproxen (Naprosyn) 500 Mg Tablet, 500 MG PO BID Prescribed by: MELO LOPEZ on 10/28/21 0302 Review of Systems Review of Systems Constitutional: no symptoms reported EENTM: no symptoms reported; No throat pain, No throat swelling Respiratory: see HPI; No cough Cardiovascular: see HPI Gastrointestinal: no symptoms reported Genitourinary: no symptoms reported Musculoskeletal: see HPI Skin: see HPI Psychiatric/Neurological: No Symptoms Reported Endocrine: No Symptoms Reported Hematologic/Lymphatic: No Symptoms Reported Past Wfkrfkn-Tnevit-Mxixjx Hx Patient Social History Tobacco Use?: No Substance use?: No Alcohol Use?: Yes Alcohol Frequency: Once in a while Immunizations Up To Date Tetanus Booster (TDap): Less than 5yrs PED Vaccines UTD: Yes First/Initial COVID19 Vaccinat: DEC 2020 Second COVID19 Vaccination Alexander: JAN 2021 Seasonal Allergies Seasonal Allergies: No Past Medical History Surgery/Hospitalization HX: CHOLECYSTECTOMY Surgeries: No Respiratory: No Cardiac: No Neurological: No Reproductive Disorders: No Gastrointestinal: Yes Gall Bladder Disease Musculoskeletal: No Endocrine: No Cancer: No Psychosocial: No Integumentary: No Blood Disorders: No Adverse Reaction/Blood Tranf: No Family Medical History Diabetes mellitus 19 MOTHER Hypercholesterolemia 19 FATHER 19 MOTHER Hypertension 19 FATHER Physical Exam Vital Signs Vital Signs - First Documented 06/07/22 20:02 Temp 36.1 Pulse 96 Resp 16 B/P (MAP) 119/82 (94) Pulse Ox 97 O2 Delivery Room Air Capillary Refill : Less Than 3 Seconds General Appearance: WD/WN, no apparent distress, obese, other (FLAT AFFECT, DOES NOT APPEAR TO BE IN ANY DISCOMFORT OR DISTRESS) HEENT: PERRL/EOMI, normal ENT inspection, pharynx normal Neck: normal inspection Cardiovascular: regular rate, rhythm Respiratory: normal breath sounds, no respiratory distress, no accessory muscle use Gastrointestinal: soft Extremities: normal range of motion, no pedal edema, no calf tenderness, normal capillary refill, other (BARELY VISIBLE, VERY FAINT AREA OF ERYTHEMA 1 CM DIAMETER ON SOLE OF LEFT FOOT IN THE ARCH AREA OF HER FOOT. NO SWELLING AT ALL. UNABLE TO IDENTIFY A DISCRETE PUNCTURE SITE. 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, no motor/sensory deficits, alert, oriented x 3 Skin: normal color, warm/dry; No rash Progress/Results/Core Measures Results/Orders My Orders Orders - JAMES TAN DO Methylprednisolone Sod Succ (Solu-Medrol (06/07/22 20:15) Diphenhydramine Injection (Benadryl Inje (06/07/22 20:15) Famotidine Injection (Pepcid Injection) (06/07/22 20:15) Medications Given in ED Current Medications Medications Dose Ordered Sig/Sajan Route Start Time Stop Time Status Last Admin Dose Admin Diphenhydramine HCl 50 mg ONCE ONCE IVP 06/07/22 20:15 06/07/22 20:16 DC 06/07/22 20:23 50 MG Famotidine 40 mg ONCE ONCE IVP 06/07/22 20:15 06/07/22 20:16 DC 06/07/22 20:26 40 MG Methylprednisolone Sodium Succinate 125 mg ONCE ONCE IVP 06/07/22 20:15 06/07/22 20:16 DC 06/07/22 20:22 125 MG Vital Signs/I&O 06/07/22 20:02 Temp 36.1 Pulse 96 Resp 16 B/P (MAP) 119/82 (94) Pulse Ox 97 O2 Delivery Room Air Blood Pressure Mean: 94 Progress Progress Note : Progress Note THERE IS NO SWELLING ANY WHERE, NO DYSPNEA, NO HYPOXIA, NO STRIDOR OR WHEEZING, NO DISSEMINATED RASH AND NO ITCHING ANYWHERE GIVEN IV SOLU-MEDROL, BENADRYL, PEPCID STATES SHE FEELS BETTER AT DISMISSAL STING SITE IS NOT VISIBLE AT DISMISSAL Departure Impression Primary Impression: BEE STING LEFT FOOT Disposition: HOME, SELF-CARE Condition: Stable Departure-Patient Inst. Decision time for Depature: 20:48 Referrals: ANNEL OTTO MD (PCP/Family) Primary Care Physician [facility] Patient Instructions: Insect Bites and Stings (DC) Add. Discharge Instructions: HYDROCORTISONE CREAM TO AREA NEEDED FOR ITCHING TYLENOL AND MOTRIN NEEDED FOR PAIN COOL COMPRESSES TO THE AREA AT 20 MINUTE INTERVALS BENADRYL 50 MG EVERY 4 HOURS NEEDED FOR ITCHING AND SWELLING RETURN TO ER IF SYMPTOMS WORSEN All discharge instructions reviewed with patient and/or family. Voiced understanding. JAMES TAN DO Jun 07, 2022 20:46
[2022-06-07 21:00] VITALS: BP 126/85
== END 2022-06-07 21:04 | disposition home or self-care (01) ==
LOC: EDUNIT# 19:56 → ER 19:59
DX: T63.441A Toxic effect of venom of bees, accidental (unintentional), initial encounter (principal)
CPT/HCPCS: 99283

== ENCOUNTER 2022-08-10 19:04 | Emergency (ER) | payer SELFPAY ==
[~2022-08-10] VITALS: Ht 62.5 cm; Wt 92.0 kg
--- NOTE | 2022-08-10 19:22 | ED Chest Pain ---
General Chief Complaint: Chest Pain Stated Complaint: CHEST PAIN Nursing Triage Note: PT AMB TO ED BY POV WITH C/O CP X 15-20 MINUTES. REPORTS PAIN INTERMITTENT STABBING PAIN, WORSE WITH DEEP BREATH, RADIATES AROUND TO BACK. REPORTS N/V/D SINCE 0200 THIS MORNING. Source: patient Exam Limitations: no limitations (SINGH GORDON APRN) History of Present Illness Date Seen by Provider: Aug 10, 2022 Time Seen by Provider: 19:14 Initial Comments This is a 31-year-old female presented the ER via POV with complaints of (SINGH GORDON APRN) Allergies and Home Medications Allergies Coded Allergies: No Known Drug Allergies (Unverified , 03/16/13) Patient Home Medication List Ciprofloxacin HCl (Ciprofloxacin HCl) 500 Mg Tablet, 500 MG PO BID Prescribed by: SINGH GORDON on 08/10/22 2142 Hydrocodone Bit/Acetaminophen (Lortab 5 Mg Tablet) 1 Each Tablet, 1-2 TAB PO 4- 6HR PRN for PAIN Prescribed by: THEODORA JACOBO on 03/31/17 1030 Hydrocodone Bit/Acetaminophen (Lortab 5 Mg Tablet) 1 Tab Tab, 1 EACH PO Q4-6HR PRN for PAIN-MODERATE Prescribed by: [facility] DON on 12/10/19 1757 Hydrocodone Bit/Acetaminophen (HYDROcodone/APAP 5 MG/325 MG TAB) 1 Tab Tab, 1 TAB PO Q6H Prescribed by: Jacy Lua on 08/11/22 1713 Hydrocodone/Acetaminophen (Hydrocodone/Acetaminophen 5 MG/325 MG TAB) 1 Each Tablet, 1 EACH PO Q4H PRN for PAIN-SEVERE Prescribed by: [facility] DON on 03/24/17 2215 Naproxen (Naprosyn) 500 Mg Tablet, 500 MG PO BID Prescribed by: MELO LOPEZ on 10/28/21 0302 Past Vpymujk-Tsixkv-Xagikd Hx Patient Social History Tobacco Use?: No Use of E-Cig and/or Vaping dev: No Substance use?: No Alcohol Use?: Yes Alcohol Frequency: Once in a while (SINGH GORDON APRN) Immunizations Up To Date Tetanus Booster (TDap): Less than 5yrs PED Vaccines UTD: Yes Influenza Vaccine Up-to-Date: No; Not Current First/Initial COVID19 Vaccinat: DEC 2020 Second COVID19 Vaccination Alexander: JAN 2021 Third COVID19 Vaccination Date: DEC 2020 COVID19 Vaccine Manager Heavy Equipment: JARET (SINGH GORDON APRN) Seasonal Allergies Seasonal Allergies: No (SINGH GORDON APRN) Past Medical History Surgery/Hospitalization HX: CHOLECYSTECTOMY Surgeries: No Respiratory: No Cardiac: No Neurological: No Reproductive Disorders: No Gastrointestinal: Yes Gall Bladder Disease Musculoskeletal: No Endocrine: No Cancer: No Psychosocial: No Integumentary: No Blood Disorders: No Adverse Reaction/Blood Tranf: No (SINGH GORDON APRN) Family Medical History Diabetes mellitus 19 MOTHER Hypercholesterolemia 19 FATHER 19 MOTHER Hypertension 19 FATHER Physical Exam Vital Signs Vital Signs - First Documented 08/10/22 08/10/22 19:10 21:50 Temp 36.8 Pulse 104 Resp 22 B/P (MAP) 135/93 (107) Pulse Ox 99 O2 Delivery Room Air ([facility]) Vital Signs Capillary Refill : Less Than 3 Seconds (SINGH GORDON APRN) Height, Weight, BMI Height: 5'3.00" Weight: 180lbs. 0.0oz. 81.575190sc; 235.00 BMI Method:Stated (SINGH GORDON APRN) Progress/Results/Core Measures Results/Orders Lab Results Laboratory Tests Test 08/10/22 19:20 08/10/22 20:43 Range/Units White Blood Count 9.7 4.3-11.0 10^3/uL Red Blood Count 5.04 3.80-5.11 10^6/uL Hemoglobin 15.2 11.5-16.0 g/dL Hematocrit 45 35-52 % Mean Corpuscular Volume 89 80-99 fL Mean Corpuscular Hemoglobin 30 25-34 pg Mean Corpuscular Hemoglobin Concent 34 32-36 g/dL Red Cell Distribution Width 12.6 10.0-14.5 % Platelet Count 262 130-400 10^3/uL Mean Platelet Volume 10.1 9.0-12.2 fL Immature Granulocyte % (Auto) 0 % Neutrophils (%) (Auto) 83 H 42-75 % Lymphocytes (%) (Auto) 11 L 12-44 % Monocytes (%) (Auto) 6 0-12 % Eosinophils (%) (Auto) 0 0-10 % Basophils (%) (Auto) 1 0-10 % Neutrophils # (Auto) 8.0 H 1.8-7.8 10^3/uL Lymphocytes # (Auto) 1.0 1.0-4.0 10^3/uL Monocytes # (Auto) 0.6 0.0-1.0 10^3/uL Eosinophils # (Auto) 0.0 0.0-0.3 10^3/uL Basophils # (Auto) 0.1 0.0-0.1 10^3/uL Immature Granulocyte # (Auto) 0.0 0.0-0.1 10^3/uL Prothrombin Time 13.3 12.2-14.7 SEC INR Comment 1.0 0.8-1.4 Activated Partial Thromboplast Time 29 24-35 SEC D-Dimer 0.48 0.00-0.49 UG/ML Sodium Level 140 135-145 MMOL/L Potassium Level 3.5 L 3.6-5.0 MMOL/L Chloride Level 105 98-107 MMOL/L Carbon Dioxide Level 20 L 21-32 MMOL/L Anion Gap 15 H 5-14 MMOL/L Blood Urea Nitrogen 12 7-18 MG/DL Creatinine 0.77 0.60-1.30 MG/DL Estimat Glomerular Filtration Rate 104 BUN/Creatinine Ratio 16 Glucose Level 107 H 70-105 MG/DL Calcium Level 9.4 8.5-10.1 MG/DL Corrected Calcium 8.5-10.1 MG/DL Magnesium Level 1.8 1.6-2.4 MG/DL Total Bilirubin 1.6 H 0.1-1.0 MG/DL Aspartate Amino Transf (AST/SGOT) 43 H 5-34 U/L Alanine Aminotransferase (ALT/SGPT) 81 H 0-55 U/L Alkaline Phosphatase 111 40-136 U/L Total Creatine Kinase 52 29-168 U/L Creatine Kinase MB 0.6 <6.6 NG/ML Myoglobin 23.1 10.0-92.0 NG/ML Troponin I < 0.028 <0.028 NG/ML Total Protein 7.4 6.4-8.2 GM/DL Albumin 4.6 H 3.2-4.5 GM/DL Lipase 16 8-78 U/L Urine Color ORANGE Urine Clarity SL CLOUDY Urine pH 6.0 5-9 Urine Specific [place] >=1.030 1.016-1.022 Urine Protein TRACE H NEGATIVE Urine Glucose (UA) NEGATIVE NEGATIVE Urine Ketones NEGATIVE NEGATIVE Urine Nitrite NEGATIVE NEGATIVE Urine Bilirubin 1+ H NEGATIVE Urine Urobilinogen 1.0 < = 1.0 MG/DL Urine Leukocyte Esterase NEGATIVE NEGATIVE Urine RBC (Auto) NEGATIVE NEGATIVE Urine RBC 0-2 /HPF Urine WBC 0-2 /HPF Urine Squamous Epithelial Cells 10-25 H /HPF Urine Crystals NONE /LPF Urine Bacteria MODERATE H /HPF Urine Casts NONE /LPF Urine Mucus MODERATE H /LPF Urine Culture Indicated NO (JACY LUA APRN) Vital Signs/I&O 08/10/22 08/10/22 19:10 21:50 Temp 36.8 Pulse 104 84 Resp 22 16 B/P (MAP) 135/93 (107) 128/90 Pulse Ox 99 100 O2 Delivery Room Air Room Air (JACY LUA APRN) Blood Pressure Mean: 107 Progress Progress Note : Progress Note 08/11/22: AYDIN Miles had me send out hydrocodone for patient that should have been sent out yesterday. This prescription was sent to the pharmacy. (JACY LUA APRN) Departure Impression Primary Impression: Enteritis Disposition: 01 HOME, SELF-CARE Condition: Improved Departure-Patient Inst. Decision time for Depature: 21:41 (SINGH GORDON APRN) Referrals: ANNEL OTTO MD (PCP/Family) Primary Care Physician Patient Instructions: [id number] Add. Discharge Instructions: Plan: 1. Start with clear liquids continue no longer vomiting, you can advance her diet slowly to bland foods and then as tolerated. 2. Make sure you are drinking plenty of fluids, would recommend drinking electrolyte drinks over the next 24 hours to help replenish electrolytes. 3. You can take Zofran every 6 hours as needed for nausea and vomiting.4. Take your antibiotics twice a day as directed and complete full course even if you begin to feel better. You can take an [id number] probiotic at bedtime. 5. Take hydrocodone as needed for severe pain otherwise take ibuprofen 600 mg every 6 hours or Tylenol 1000mg every 8 hours as needed. 6. Return to the ER for any new, concerning, worsening symptoms All discharge instructions reviewed with patient and/or family. Voiced understanding. Scripts Hydrocodone Bit/Acetaminophen (HYDROcodone/APAP 5 MG/325 MG TAB) 1 Tab Tab 1 TAB PO Q6H for Pain, #8 TAB 0 Refills Prov: JACY LUA APRN 08/11/22 Ciprofloxacin HCl (Ciprofloxacin HCl) 500 Mg Tablet 500 MG PO BID for 7 Days, #14 TAB 0 Refills Prov: SINGH GORDON APRN 08/10/22 SINGH GORDON APRN Aug 10, 2022 19:22 JACY LUA APRN Aug 11, 2022 17:13
[2022-08-10] MEDS ORDERED: NS IV 1000 ML 1,000 ML IV ONE (19:30)
[2022-08-10] MEDS ORDERED: fentaNYL INJ 100 MCG/2 ML AMP IVP ONE ×2 (19:30→20:30)
[2022-08-10 19:31] LABS: BASOPHILS # (AUTO) 0.1 10^3/uL (0.0-0.1); BASOPHILS % (AUTO) 1 % (0-10); EOSINOPHILS % (AUTO) 0 % (0-10); HEMATOCRIT 45 % (35-52); HEMOGLOBIN 15.2 g/dL (11.5-16.0); LYMPHOCYTES % (AUTO) 11 % (12-44); MEAN CORPUSCULAR HEMOGLOBIN 30 pg (25-34); MEAN CORPUSCULAR HGB CONC 34 g/dL (32-36); MEAN CORPUSCULAR VOLUME 89 fL (80-99); MEAN PLATELET VOLUME 10.1 fL (9.0-12.2); MONOCYTES # (AUTO) 0.6 10^3/uL (0.0-1.0); MONOCYTES % (AUTO) 6 % (0-12); NEUTROPHILS % (AUTO) 83 % (42-75); PLATELET COUNT 262 10^3/uL (130-400); WHITE BLOOD COUNT 9.7 10^3/uL (4.3-11.0)
--- NOTE | 2022-08-10 19:45 | Diagnostic Imaging Report ---
HISTORY: Chest pain TECHNIQUE: Frontal view of the chest. COMPARISON: 10/28/2021 FINDINGS: Lung volumes are normal. Haziness over the lungs is thought to be due to overlying soft tissue. There is no pleural effusion or pneumothorax. The cardiac silhouette is normal in size. IMPRESSION: 1. No acute pulmonary abnormality. Dictated by: Dictated on workstation # [id number]
[2022-08-10 19:52] LABS: PROTHROMBIN TIME PATIENT 13.3 SEC (12.2-14.7)
[2022-08-10 19:55] LABS: ALANINE AMINOTRANSFERASE 81 U/L (0-55); ALBUMIN 4.6 GM/DL (3.2-4.5); ALKALINE PHOSPHATASE 111 U/L (40-136); BILIRUBIN,TOTAL 1.6 MG/DL (0.1-1.0); BUN/CREATININE RATIO 16; CALCIUM 9.4 MG/DL (8.5-10.1); CARBON DIOXIDE 20 MMOL/L (21-32); CHLORIDE 105 MMOL/L (98-107); CREATINE KINASE 52 U/L (29-168); CREATININE SERUM 0.77 MG/DL (0.60-1.30); GFR ESTIMATED 104; GLUCOSE 107 MG/DL (70-105); LIPASE 16 U/L (8-78); MAGNESIUM 1.8 MG/DL (1.6-2.4); POTASSIUM 3.5 MMOL/L (3.6-5.0); SODIUM 140 MMOL/L (135-145); TOTAL PROTEIN 7.4 GM/DL (6.4-8.2)
[2022-08-10 20:02] LABS: CREATINE KINASE MB 0.6 NG/ML (<6.6)
[2022-08-10] MEDS ORDERED: NS W/KCL 20 MEQ/L 1,000 ML IV ONE (20:30)
[2022-08-10] MEDS ORDERED: IOHEXOL 350 MG/ML 100 ML (OMNIPAQUE 350) VIAL IV ONE (20:30)
[2022-08-10] MEDS ORDERED: KETOROLAC 30 MG/ML VIAL IVP ONE (20:30)
[2022-08-10] MEDS ORDERED: HOLD METFORMIN - RECEIVED CONTRAST 20 ML VIAL IV SCH (20:30)
[2022-08-10] MEDS ORDERED: NS 100 ML (IVPB) BAG IV ONE (20:30)
--- NOTE | 2022-08-10 20:40 | Diagnostic Imaging Report ---
INDICATION: Abdominal pain and nausea, vomiting and diarrhea. TECHNIQUE: Multiple contiguous axial images were obtained through the abdomen and pelvis after administration of intravenous contrast. Auto Exposure Controls were utilized during the CT exam to meet ALARA standards for radiation dose reduction. All CT scans use one or more of the following dose optimizing techniques: automated exposure control, MA and/or KvP adjustment based on patient size and exam type or iterative reconstruction. Comparison obtained 08/16/2017. Visualized portions of the lung bases are clear. There were no pleural fluid collections. There is no free intraperitoneal air. The liver shows no focal lesion. Gallbladder is absent. Spleen, adrenals, and pancreas are normal. The kidneys bilaterally appear unremarkable. There is no retroperitoneal mass or adenopathy. There is no ascites. There is a small periumbilical hernia containing fat. Uterus and adnexa appear unremarkable. The appendix appears normal. There are some thickened loops of proximal small bowel in the left upper quadrant with fluid-filled appearance, the findings are most likely secondary to enteritis. There is no overt obstruction, the colonic loops do not appear distended. IMPRESSION: There are thickened fluid filled loops of partial small bowel left upper quadrant, compatible with enteritis. There is no overt obstruction. The appendix appears normal. There is no ascites or abscess. Dictated by: Dictated on workstation # [id number]
[2022-08-10 20:58] LABS: BILIRUBIN,URINE 1+ (NEGATIVE); CLARITY,URINE SL CLOUDY; COLOR,URINE ORANGE; GLUCOSE, URINE (UA) NEGATIVE (NEGATIVE); KETONES,URINE NEGATIVE (NEGATIVE); LEUKOCYTE ESTERASE ,URINE NEGATIVE (NEGATIVE); NITRITE,URINE NEGATIVE (NEGATIVE); PROTEIN,URINE TRACE (NEGATIVE)
[2022-08-10 21:12] LABS: BACTERIA,URINE MODERATE /HPF; RBC,URINE 0-2 /HPF; WBC,URINE 0-2 /HPF
[2022-08-10] MEDS ORDERED: CIPR500T5 PO (21:42)
[2022-08-10] MEDS ORDERED: CIPROFLOXACIN 500 MG (CIPRO) TABLET PO ONE (21:45)
[2022-08-10 21:50] VITALS: BP 128/90
[2022-08-11] MEDS ORDERED: ACHD5005 PO (17:12)
== END 2022-08-10 21:53 | disposition home or self-care (01) ==
LOC: EDUNIT# 19:04 → ER 19:06
DX: K52.9 Noninfective gastroenteritis and colitis, unspecified (principal); Z90.49 Acquired absence of other specified parts of digestive tract
CPT/HCPCS: 36415; 71045; 74177; 80053; 81000; 82550; 82553; 83690; 83735; 83874; 84484; 85025; 85379; 85610; 85730; 93005; 93041